=== PATIENT | male | born 2000 | race Caucasian/White ===

== ENCOUNTER 2020-08-07 17:12 | Emergency (ER) | payer MEDICAID, SELFPAY ==
[2020-08-07 17:24] VITALS: BP 121/80; PULSE 85; RESP 16; TEMP 36.2; O2SAT 100
--- NOTE | 2020-08-07 17:26 | ED.EYEPROB ---
HPI - Eye Problem General Chief complaint: Skin/Abscess/Foreign Body Stated complaint: swelling right eye Time Seen by Provider: 08/07/20 17:26 Source: patient Mode of arrival: ambulatory Limitations: no limitations History of Present Illness HPI Narrative: Arnav Ely is a 20 yo male with no prior medical history comes to the [facility] with an abscess on the right upper cheek below the right eye, unknown cause been there about 2 weeks and continued to get larger, patient shaves slightly, denies any trauma to the area. Area 2.5x2.5 cm and is fluctuant Related Data Home Medications Medication Instructions Recorded Confirmed No Home Medications 06/14/19 06/14/19 Allergies Allergy/AdvReac Type Severity Reaction Status Date / Time pomegranate Allergy Unknown Verified 08/07/20 17:39 Review of Systems Review of Systems: Narrative: CONSTITUTIONAL: Denies fever, chills, sweats. EYES: Denies visual changes, redness, discharge. ENT: Denies rhinorrhea, congestion, sore throat, otalgia. CARDIOVASCULAR: Denies chest pain, palpitations, edema. RESPIRATORY: Denies dyspnea, wheezing, cough GASTROINTESTINAL: Denies abdominal pain, nausea, vomiting, diarrhea. GENITOURINARY: Denies dysuria, hematuria, abnormal discharge SKIN: Denies rash or itching. Abscess right upper cheek below eye, tender NEUROLOGIC: Denies numbness, or focal weakness. PSYCHIATRIC: Denies anxiety or depression. PMFSH Past Medical History Medical History Insomnia, unspecified Family History Family History Other Depression Diabetes mellitus Family history of arthritis Family history of mental disorder Hypertension Social History Social History Smoking status: Never smoker Alcohol intake: never Gender identity (if verbalized by the patient): Male Comments At time of signature, I agree with nursing past medical, surgical, social and family history. There is no relevant family history pertinent to the presenting complaint. Exam Narrative: Exam Narrative: GENERAL: This is a well-nourished, well-developed patient, in mild distress. HEAD: normocephalic, atraumatic. EYES: Sclera clear/white. Vision is grossly intact. EARS: External ears normal, . Hearing grossly intact. NOSE: External nose normal without nasal discharge, nares without redness, no rhinorrhea. THROAT: Mucous membranes moist, NECK: Neck supple, CARDIOVASCULAR: Regular rate and rhythm without murmurs, gallops, or rubs. RESPIRATORY: Clear to auscultation. Breath sounds equal bilaterally. No wheezes, rales, or rhonchi. GASTROINTESTINAL: Abdomen soft, SKIN: warm, intact with 2.5x2.5 abscess below R eye NEURO: awake, alert, and oriented to person, place and time. There were no obvious focal neurologic abnormalities. Steady gait EXTREMITIES: Normal range of motion. BACK: Nontender without deformity Course Course Emergency Course: [facility] to right upper cheekbone below right eye - started 2 weeks ago I&D of abscess Started on Bactrim and Keflex Given directions on care to patient and mother Vital Signs Vital signs: Vital Signs Temperature 97.1 F L 08/07/20 17:24 Pulse Rate 85 08/07/20 17:24 Respiratory Rate 16 08/07/20 17:24 Blood Pressure 121/80 08/07/20 17:24 Pulse Oximetry 100 08/07/20 17:24 Temperature 97.1 F L 08/07/20 17:24 Pulse Rate 85 08/07/20 17:24 Respiratory Rate 16 08/07/20 17:24 Blood Pressure 121/80 08/07/20 17:24 Pulse Oximetry 100 08/07/20 17:24 Procedures Abscess I/D face: Date of Incision: 08/07/20 Time of Incision: 17:30 Side (if applicable): right Technique: needle aspiration Amount of fluid expressed (mL): 2 Irrigation: Yes Packing used?: none I&D Resu
--- NOTE | 2020-08-07 18:01 | PC.NURSE ---
171- Wound cleansed with primaderm.
== END 2020-08-07 17:51 | disposition home or self-care (01) ==
PROVIDERS: Emergency Provider Nurse Practitioner
DX: L02.01 Cutaneous abscess of face (principal)
CPT/HCPCS: 10160; 87070; 87075; 87205; 99213; G0463

== ENCOUNTER 2020-09-20 18:50 | Emergency (ER) | payer OTHER, SELFPAY ==
[2020-09-20 18:59] VITALS: BP 131/80; PULSE 81; RESP 16; TEMP 36.7; O2SAT 100
--- NOTE | 2020-09-20 19:21 | ED.LOWEXIN ---
HPI - Extremity Injury (Lower) General Chief Complaint: Extremity Injury, Lower Stated Complaint: left ankle Time Seen by Provider: 09/20/20 19:07 Source: patient and RN notes reviewed Mode of arrival: ambulatory Limitations: no limitations History of Present Illness HPI Narrative: Patient presents today complaint of a left ankle injury that was sustained this morning at work. Patient walks dogs at a kennel. He hyper plantar flexed his foot, injuring it. Denies numbness or tingling in the leg or foot. Currently rates his pain 3/10 at rest, which increases to 7/10 with any weightbearing. He has been taking ibuprofen and applying ice with only mild relief. He is unsure if this will be considered a Workmen's Compensation claim at his job. MD complaint: ankle injury Related Data Home Medications Medication Instructions Recorded Confirmed No Home Medications 06/14/19 09/20/20 Allergies Allergy/AdvReac Type Severity Reaction Status Date / Time pomegranate Allergy Unknown Verified 09/20/20 19:05 Review of Systems Review of Systems: CONSTITUTIONAL: Denies body aches, fever, chills, or sweats. EYES: Denies visual changes, redness, or discharge. ENT: Denies rhinorrhea, congestion, sore throat, or otalgia. CARDIOVASCULAR: Denies chest pain, palpitations, or edema. RESPIRATORY: Denies cough or dyspnea. GASTROINTESTINAL: Denies abdominal pain, nausea, vomiting, or diarrhea. GENITOURINARY: Denies dysuria or hematuria. SKIN: Denies rash, itching, or wounds. MUSCULOSKELETAL: Denies back pain,or myalgia.+ Left ankle injury NEUROLOGIC: Denies headache, numbness, tingling, or weakness. PSYCH: Denies depression or anxiety. [facility] Past Medical History Medical History Insomnia, unspecified Family History Family History Other Depression Diabetes mellitus Family history of arthritis Family history of mental disorder Hypertension Social History Social History Smoking status: Never smoker Alcohol intake: never Gender identity (if verbalized by the patient): Male Comments At time of signature, I have reviewed and agree with nursing past medical, surgical, social and family history unless otherwise noted. Please see nursing chart for further information. There is no relevant family history pertinent to the presenting complaint Exam Narrative: GENERAL: Well-appearing, well-nourished, and in no acute distress. HEAD: Normocephalic, atraumatic. EYES: EOMI. No redness or drainage. Conjunctivae normal. ENT: Mucous membranes pink and moist. NECK: Normal AROM. CHEST: No respiratory distress. EXTREMITIES: Left ankle: No bony tenderness to the medial or lateral malleolus. Patient has localized edema and soft tissue tenderness to the anterior ankle. Distal sensation intact. Capillary refill normal. Pedal pulse normal. Full range of motion of the ankle actively with increased pain in all directions. No tenderness to the foot. No ecchymosis to the ankle or foot. SKIN: Warm, dry, no rash. Capillary refill normal. Normal skin turgor. NEURO: No focal deficits. Alert and oriented x3. Gait steady. PSYCH: Normal affect. No signs of depression or anxiety. Course Course Emergency Course: Per [place] ankle rules, patient does not require an x-ray at this time. Vital Signs Vital signs: Vital Signs Temperature 98.0 F 09/20/20 18:59 Pulse Rate 81 09/20/20 18:59 Respiratory Rate 16 09/20/20 18:59 Blood Pressure 131/80 09/20/20 18:59 Pulse Oximetry 100 09/20/20 18:59 Temperature 98.0 F 09/20/20 18:59 Pulse Rate 81 09/20/20 18:59 Respiratory Rate 16 09/20/20 18:59 Blood Pressure 131/80 09/20/20 18:59 Pulse Oximetry 100 09/20/20 18:59 Reviewed. Pt has been instructed to follow up with his PCP regarding his
== END 2020-09-20 19:28 | disposition home or self-care (01) ==
PROVIDERS: Emergency Provider Nurse Practitioner
DX: S93.402A Sprain of unspecified ligament of left ankle, initial encounter (principal); X50.9XXA Other and unspecified overexertion or strenuous movements or postures, initial encounter; J45.909 Unspecified asthma, uncomplicated
CPT/HCPCS: 99212; G0463